=== PATIENT | female | born 1975 | race Caucasian/White ===

== ENCOUNTER 2016-12-28 17:34 | Emergency (ER) | payer BC ==
[2016-12-28] MEDS ORDERED: KETOROLAC TROMETHAMINE INJ/PF 30 MG/1 ML SDV IV ONE (18:11)
--- NOTE | 2016-12-28 18:12 | ER Document Report ---
ED Medical Screen (RME) - General Stated Complaint: LEFT FLANK PAIN Time Seen by Provider: 12/28/16 18:11 Mode of Arrival: Ambulatory Information source: Patient Notes: Patient presents complaining of left flank pain for the past 3 days. Patient states pain occasionally will increase in intensity and making her nauseous and break out in a sweat. Patient does complain of some urinary frequency. Patient was sent here for evaluation of possible kidney stone versus pyelonephritis. TRAVEL OUTSIDE OF THE [place] IN LAST 30 DAYS: No - Related Data Allergies/Adverse Reactions: ciprofloxacin [From Cipro] Allergy (Verified 09/20/15 18:35) Hives ciprofloxacin HCl [From Cipro] Allergy (Verified 09/20/15 18:35) Hives Penicillins Allergy (Verified 09/20/15 18:35) Hives prednisone [Prednisone] Allergy (Verified 09/20/15 18:35) sulfamethoxazole [From Bactrim] Allergy (Verified 09/20/15 18:35) Hives trimethoprim [From Bactrim] Allergy (Verified 09/20/15 18:35) Hives Past Medical History - Past Medical History Cardiac Medical History: Reports: Hx Coronary Artery Disease, Hx Hypercholesterolemia, Hx Hypertension - resolved Endocrine Medical History: Reports: Hx Graves' Disease GI Medical History: Reports: Hx Gastroesophageal Reflux Disease, Hx Ulcer - Gastric Musculoskeltal Medical History: Denies Hx Arthritis Past Surgical History: Reports: Hx Abdominal Surgery - lap band 2010, Hx Section - 2007 - Immunizations Hx Diphtheria, Pertussis, Tetanus Vaccination: Yes Physical Exam - Back Back: CVA tenderness - left
[2016-12-28 18:14] VITALS: BP 153/96
[2016-12-28 18:47] LABS: ABSOLUTE EOSINOPHILS # (AUTO) 0.1 10^3/uL (0.0-0.6); ABSOLUTE LYMPHOCYTES (AUTO) 3.6 10^3/uL (0.5-4.7); ABSOLUTE MONOCYTES (AUTO) 0.5 10^3/uL (0.1-1.4); ABSOLUTE NEUT (AUTO) 5.5 10^3/uL (1.7-8.2); BASOPHILS % (AUTO) 0.5 % (0-2); EOSINOPHILS % (AUTO) 1.1 % (0-6); HEMATOCRIT 42.2 % (36.0-47.0); HEMOGLOBIN 14.1 g/dL (12.0-15.5); HGB HCT DIFFERENCE 0.1; LYMPHOCYTES % (AUTO) 36.9 % (13-45); MEAN CORPUSCULAR HEMOGLOBIN 29.6 pg (27.0-33.4); MEAN CORPUSCULAR HGB CONC 33.5 g/dL (32.0-36.0); MEAN CORPUSCULAR VOLUME 89 fl (80-97); MONOCYTES % (AUTO) 5.3 % (3-13); RED BLOOD COUNT 4.76 10^6/uL (3.72-5.28); RED CELL DISTRIBUTION WIDTH 13.7 % (11.5-14.0); SEGMENTED NEUTROPHILS % (AUTO) 56.2 % (42-78); WHITE BLOOD COUNT 9.8 10^3/uL (4.0-10.5)
[2016-12-28 18:59] LABS: ALANINE AMINOTRANSFERASE 28 U/L (9-52); ALBUMIN 4.3 g/dL (3.5-5.0); ALKALINE PHOSPHATASE 93 U/L (38-126); ANION GAP 9 (5-19); ASPARTATE AMINO TRANSFERASE 18 U/L (14-36); BILIRUBIN,DIRECT 0.3 mg/dL (0.0-0.4); BILIRUBIN,TOTAL 0.4 mg/dL (0.2-1.3); BLOOD UREA NITROGEN 14 mg/dL (7-20); CALCIUM 9.7 mg/dL (8.4-10.2); CARBON DIOXIDE 27 mmol/L (22-30); CHLORIDE 103 mmol/L (98-107); CREATININE RESULT 0.89 mg/dL (0.52-1.25); GLUCOSE 92 mg/dL (75-110); POTASSIUM 4.2 mmol/L (3.6-5.0); SODIUM 138.9 mmol/L (137-145); TOTAL PROTEIN 7.3 g/dL (6.3-8.2)
[2016-12-28 19:19] LABS: APPEARANCE,URINE CLEAR; BILIRUBIN,URINE NEGATIVE (NEGATIVE); GLUCOSE, URINE NEGATIVE (NEGATIVE); KETONES,URINE NEGATIVE (NEGATIVE); LEUKOCYTE ESTERASE,URINE NEGATIVE (NEGATIVE); NITRITE,URINE NEGATIVE (NEGATIVE); PROTEIN,URINE NEGATIVE (NEGATIVE); URINE SPECIFIC GRAVITY 1.014; UROBILINOGEN,URINE NEGATIVE mg/dL (<2.0)
[2016-12-28] MEDS ORDERED: TAMSULOSIN HCL 0.4 MG CAP.SR.24H PO ONE (20:05)
[2016-12-28] MEDS ORDERED: MORPHINE SULFATE IR 15 MG TABLET PO ONE (20:05)
[2016-12-28] MEDS ORDERED: ACETAMINOPHEN 325 MG TABLET PO ONE (20:05)
[2016-12-28] MEDS ORDERED: LIDOCAINE 5% (700 MG) TRANSDERMAL ADH..PATCH TP ONE (20:05)
--- NOTE | 2016-12-28 20:06 | ER Document Report ---
ED General - General Chief Complaint: Flank Pain Stated Complaint: LEFT FLANK PAIN Time Seen by Provider: 12/28/16 18:11 Mode of Arrival: Ambulatory Notes: Patient is a 41-year-old female who presents with 48 hours of a constant, stabbing pain to the left flank that intermittently worsens. Nothing seems to trigger the worsening of the pain. Nothing improves the pain. She has tried ibuprofen with no relief. Denies any prior history of kidney stones although notes a strong family history of such. She has had hematuria and went to an urgent care where they did note hematuria in her urine and referred to the emergency department for further evaluation. She has been nauseated but has not had any vomiting. No chest pain or shortness of breath. No pleuritic pain. No history of estrogen use. TRAVEL OUTSIDE OF THE [place] IN LAST 30 DAYS: No - Related Data Allergies/Adverse Reactions: ciprofloxacin [From Cipro] Allergy (Verified 09/20/15 18:35) Hives ciprofloxacin HCl [From Cipro] Allergy (Verified 09/20/15 18:35) Hives Penicillins Allergy (Verified 09/20/15 18:35) Hives prednisone [Prednisone] Allergy (Verified 09/20/15 18:35) sulfamethoxazole [From Bactrim] Allergy (Verified 09/20/15 18:35) Hives trimethoprim [From Bactrim] Allergy (Verified 09/20/15 18:35) Hives Past Medical History - General Information source: Patient - Social History Smoking Status: Never Smoker Chew tobacco use (# tins/day): No Frequency of alcohol use: None Drug Abuse: None Lives with: Spouse/Significant other Family History: Reviewed & Not Pertinent Patient has suicidal ideation: No Patient has homicidal ideation: No - Past Medical History Cardiac Medical History: Reports: Hx Coronary Artery Disease, Hx Hypercholesterolemia, Hx Hypertension - resolved Endocrine Medical History: Reports: Hx Graves' Disease Renal/ Medical History: Denies: Hx Peritoneal Dialysis GI Medical History: Reports: Hx Gastroesophageal Reflux Disease, Hx Ulcer - Gastric Musculoskeltal Medical History: Denies Hx Arthritis Past Surgical History: Reports: Hx Abdominal Surgery - lap band 2010, Hx Section - 2007 - Immunizations Hx Diphtheria, Pertussis, Tetanus Vaccination: Yes Review of Systems - Review of Systems Notes: Constitutional: Negative for fever. HENT: Negative for sore throat. Eyes: Negative for visual changes. Cardiovascular: Negative for chest pain. Respiratory: Negative for shortness of breath. Gastrointestinal: Positive for left flank pain and nausea Genitourinary: N positive for hematuria Musculoskeletal: Negative for back pain. Skin: Negative for rash. Neurological: Negative for headaches, weakness or numbness. 10 point ROS negative except as marked above and in HPI. Physical Exam - Vital signs Vitals: Temp Pulse Resp BP Pulse Ox 98.4 F 79 20 153/96 H 97 12/28/16 18:12 12/28/16 18:12 12/28/16 18:12 12/28/16 18:12 12/28/16 18:12 Interpretation: Hypertensive Notes: PHYSICAL EXAMINATION: GENERAL: Well-appearing, well-nourished and in no acute distress. HEAD: Atraumatic, normocephalic. EYES: Pupils equal round and reactive to light, extraocular movements intact, sclera anicteric, conjunctiva are normal. ENT: nares patent, oropharynx clear without exudates. Moist mucous membranes. NECK: Normal range of motion, supple without lymphadenopathy LUNGS: Breath sounds clear to auscultation bilaterally and equal. No wheezes rales or rhonchi. HEART: Regular rate and rhythm without murmurs ABDOMEN: Soft, nontender, normoactive bowel sounds. Mild left CVA tenderness. No guarding, no rebound. No masses appreciated. EXTREMITIES: Normal range of motion, no pitting or edema. No cyanosis. NEUROLOGICAL: No focal neurological deficits. Moves all extremities spontaneously and on command. PSYCH: Normal mood, normal affect. SKIN: Warm, Dry, normal turgor, no rashes or lesions noted. Course - Re-evaluation Re-evalutation: 12/28/16 20:03 Presents with findings consistent with possible acute nephrolithiasis. Urinalysis at the urgent care did show hematuria but was clean here. Laboratory otherwise unremarkable. Renal ultrasound of the bedside does show mild hydronephrosis on the left, absent on the right. Pain was able to be controlled here in the emergency department. Patient is tolerating oral intake. Clinical history is not consistent with an acute abdominal aneurysm or dissection, MT, or pulmonary embolus. Urinalysis does not show findings consistent with an infected stone. I have had a risks and benefits conversation with the patient regarding CT imaging of the abdomen and pelvis at this time. We discussed, based on today's exam and labs there is a possibility that they could have a diagnosis that could be better clarified by CT and that this could possibly waste/materials exchange specialist. We discussed the risks of radiation to the abdomen and pelvis. We discussed the alternative of close follow-up with their primary care physician as well as reasons to return to the emergency department. After this conversation, the patient has elected to avoid CT imaging of the abdomen and pelvis at this time. They have capacity. They have verbalized the importance of close follow-up as well as reasons to return to the emergency department including worsening pain, fever, persistent vomiting, or any other symptoms that are worrisome to them. Will empirically treat as a kidney stone at this time. - Vital Signs Vital signs: Temp Pulse Resp BP Pulse Ox 98.4 F 79 20 153/96 H 97 12/28/16 18:12 12/28/16 18:12 12/28/16 18:14 12/28/16 18:12 12/28/16 18:12 - Laboratory Result Diagrams: 12/28/16 18:25 12/28/16 18:25 Laboratory results interpreted by me: 12/28/16 19:00 Urine Blood SMALL H Discharge - Discharge Clinical Impression: Flank pain Condition: Good Disposition: HOME, SELF-CARE Additional Instructions: Your symptoms should improve over the course of the next one week. If you continue to have pain for greater than one week or your pain is not controlled with the pain medications that you have been sent home with you need to return to the emergency department. Please also return if you develop fever, persistent vomiting, or any other symptoms that are concerning to you. For your pain: Take ibuprofen 600 mg and acetaminophen 1000 mg every 6 hours together as needed for pain. If this does not control your pain you may take 15 mg of oral morphine every 4 hours as needed. Please be very careful about using the oral morphine and only use this for severe pain. Your also been sent home with a medication called Flomax to help pass the stone. You've been given Zofran to assist with nausea. Please followup closely with your primary care provider. Prescriptions: Morphine Sulfate [Morphine Ir 15 mg Tablet] 15 mg PO Q4HP PRN #12 tablet PRN Reason: Tamsulosin HCl [Flomax 0.4 mg Cap.sr] 0.4 mg PO DAILY #7 cap.sr.24h
== END 2016-12-28 21:36 | disposition home or self-care (01) ==
LOC: ER 17:34
DX: N13.30 Unspecified hydronephrosis (principal); R10.9 Unspecified abdominal pain; R11.0 Nausea; I25.10 Atherosclerotic heart disease of native coronary artery without angina pectoris; I10 Essential (primary) hypertension; Z88.1 Allergy status to other antibiotic agents; Z88.0 Allergy status to penicillin; Z88.8 Allergy status to other drugs, medicaments and biological substances
CPT/HCPCS: 99284; 96374; 36415; 87086; 84703; 85025; 87088; 80053; 81001; J1885

== ENCOUNTER 2018-08-31 18:36 | Emergency (ER) | payer BC ==
--- NOTE | 2018-08-31 18:49 | ER Document Report ---
ED Medical Screen (RME) - General Chief Complaint: Allergic Reaction Stated Complaint: THROAT SWELLING,DIFFICULTY BREATHING Time Seen by Provider: 08/31/18 18:47 Mode of Arrival: Ambulatory Information source: Patient, Relative TRAVEL OUTSIDE OF THE [place] IN LAST 30 DAYS: No - HPI Notes: 08/31/18 18:58 42-year-old female who presents to the ED by private vehicle for evaluation of possible allergic reaction after starting prednisone yesterday for poison mayi exposure yesterday on her fingers. reports she feels short of breath and difficulty talking after taking 2 days of prednisone. states her last dose was of prednisone was approx 7 hours ago. no n/v/d, no cp. no other oral medications besides prednisone. not eating but drinking ok. no rashes. vacc utd. no hx of cardiac issues. allergy to prednisone in 2016, but it was an injection of solumedrol. exam: ENT: Nares patent, oropharynx clear without exudates. Moist mucous membranes. Uvula midline,. NECK: Normal range of motion, supple without lymphadenopathy LUNGS: Breath sounds clear to auscultation bilaterally and equal. No wheezes rales or rhonchi. HEART:tachycardia and rhythm without murmurs ABDOMEN: Soft, nontender, nondistended abdomen. No guarding, no rebound. No masses appreciated. Patient given 50 mg IVP mode of pain and, patient is speaking in full sentences, no retraction, no wheezing heard on auscultation of lungs, airway is patent. Patient became what appeared to be more anxious as conversation went on about her physical assessment. she is slightly tachycardic and blood pressure is elevated she does not have a history of hypertension. Denies taking any other medications besides prednisone, has not had any Benadryl today. Will further evaluate in main ED. I have greeted and performed a rapid initial assessment of this patient. A comprehensive ED assessment and evaluation of the patient, analysis of test results and completion of medical decision making process will be conducted by an additional ED providers. - Related Data Allergies/Adverse Reactions: ciprofloxacin [From Cipro] Allergy (Verified 09/20/15 18:35) Hives ciprofloxacin HCl [From Cipro] Allergy (Verified 09/20/15 18:35) Hives Penicillins Allergy (Verified 09/20/15 18:35) Hives prednisone [Prednisone] Allergy (Verified 09/20/15 18:35) sulfamethoxazole [From Bactrim] Allergy (Verified 09/20/15 18:35) Hives trimethoprim [From Bactrim] Allergy (Verified 09/20/15 18:35) Hives Past Medical History - General Information source: Patient, Relative - Past Medical History Cardiac Medical History: Reports: Hx Coronary Artery Disease, Hx Hypercholesterolemia, Hx Hypertension - resolved Endocrine Medical History: Reports: Hx Graves' Disease Renal/ Medical History: Denies: Hx Peritoneal Dialysis GI Medical History: Reports: Hx Gastroesophageal Reflux Disease, Hx Ulcer - Gastric Musculoskeltal Medical History: Denies Hx Arthritis Past Surgical History: Reports: Hx Abdominal Surgery - lap band 2010, Hx Section - 2007 - Immunizations Hx Diphtheria, Pertussis, Tetanus Vaccination: Yes Review of Systems - Review of Systems Constitutional: No symptoms reported EENT: No symptoms reported Cardiovascular: No symptoms reported Respiratory: See HPI Gastrointestinal: No symptoms reported Genitourinary: No symptoms reported Female Genitourinary: No symptoms reported Musculoskeletal: No symptoms reported Skin: No symptoms reported Hematologic/Lymphatic: No symptoms reported Neurological/Psychological: No symptoms reported Physical Exam - Vital signs Vitals: Temp Pulse Resp BP Pulse Ox 98.8 F 122 H 18 164/99 H 99 08/31/18 18:46 08/31/18 18:46 08/31/18 18:46 08/31/18 18:46 08/31/18 18:46 Course - Vital Signs Vital signs: Temp Pulse Resp BP Pulse Ox 98.8 F 122 H 18 164/99 H 99 08/31/18 18:46 08/31/18 18:46 08/31/18 18:46 08/31/18 18:46 08/31/18 18:46
[2018-08-31] MEDS ORDERED: DIPHENHYDRAMINE HCL 50 MG/ML VIAL IV ONE (19:09)
[2018-08-31] MEDS ORDERED: FAMOTIDINE INJ/PF 20 MG/2 ML SDV IV ONE (19:09)
[2018-08-31] MEDS ORDERED: DILTIAZEM HCL INJ 25 MG/5 ML VIAL ONE (19:31)
[2018-08-31] MEDS ORDERED: ADENOSINE INJ/PF 6 MG/2 ML SDV IV ONE (19:31)
[2018-08-31] MEDS ORDERED: LORAZEPAM INJ 2 MG/1 ML VIAL IV ONE (19:42)
[2018-08-31] MEDS ORDERED: NORMAL SALINE 1000 ML 1,000 ML IV ONE (19:47)
--- NOTE | 2018-08-31 19:47 | ER Document Report ---
ED General - General Chief Complaint: Allergic Reaction Stated Complaint: THROAT SWELLING,DIFFICULTY BREATHING Time Seen by Provider: 08/31/18 18:47 Mode of Arrival: Ambulatory TRAVEL OUTSIDE OF THE [place] IN LAST 30 DAYS: No - HPI Notes: Patient is a 42-year-old female that presents to the emergency department for chief complaint of allergic reaction. Patient is concerned she is having allergic reaction to her prednisone. She was started on prednisone yesterday for poison mayi. She states that the poison mayi has significantly improved since yesterday. She states it is mostly on the right side of her face and hands. Patient states she has had a allergy to Solu- Medrol in the past but has never had any issues with p.o. prednisone. She described a throat itching that began just prior to coming to the emergency room. She denied any shortness of breath, wheezing or lightheadedness. Currently she is complaining of palpitations and chills. She states that her throat feels back to normal currently. Patient does report severe allergic reactions in the past. Past Medical History: Seasonal allergies Past Surgical History: [] Social History: Denies drugs alcohol and tobacco Family History: Reviewed and noncontributory for presenting illness Allergies: Reviewed, see documented allergy list. REVIEW OF SYSTEMS: CONSTITUTIONAL : No fever No chills No diaphoresis No recent illness EENT: No vision changes No congestion sore throat CARDIOVASCULAR: No chest pain palpitations RESPIRATORY: No shortness of breath No cough No difficulty breathing GASTROINTESTINAL: No abdominal pain No nausea No vomiting No diarrhea GENITOURINARY: No dysuria No hematuria No difficulty urinating MUSCULOSKELETAL: No back pain No leg pain No arm pain SKIN: rashes No lesions LYMPHATIC: No swollen, enlarged glands. NEUROLOGICAL: No lightheadedness No headache No weakness No paresthesias PSYCHIATRIC: No anxiety No depression PHYSICAL EXAMINATION: Vital signs reviewed, nursing noted reviewed. GENERAL: Well-appearing, well-nourished and in no acute distress. HEAD: Atraumatic, normocephalic. EYES: Eyes appear normal, extraocular movements intact, sclera anicteric, conjunctiva are normal. ENT: Uvula midline with no edema, nares patent, oropharynx clear without exudates. Moist mucous membranes. NECK: Normal range of motion, supple without lymphadenopathy LUNGS: Breath sounds clear to auscultation bilaterally and equal. No wheezes rales or rhonchi. HEART: Tachycardic rate and regular rhythm without murmurs ABDOMEN: Soft, nontender, normoactive bowel sounds. No rebound, guarding, or rigidity. No masses appreciated. EXTREMITIES: Nontender, good range of motion, no pitting or edema. NEUROLOGICAL: No focal neurological deficits. Moves all extremities spontaneously Motor and sensory grossly intact on exam. PSYCH: Anxious, rapid pressured speech, tremulous SKIN: Warm, Dry, normal turgor, vesicular and erythematous rash to right cheek and inner webspaces of bilateral hands - Related Data Allergies/Adverse Reactions: ciprofloxacin [From Cipro] Allergy (Verified 09/20/15 18:35) Hives ciprofloxacin HCl [From Cipro] Allergy (Verified 09/20/15 18:35) Hives Penicillins Allergy (Verified 09/20/15 18:35) Hives prednisone [Prednisone] Allergy (Verified 09/20/15 18:35) sulfamethoxazole [From Bactrim] Allergy (Verified 09/20/15 18:35) Hives trimethoprim [From Bactrim] Allergy (Verified 09/20/15 18:35) Hives Past Medical History - General Information source: Patient, Relative - Social History Smoking Status: Unknown if Ever Smoked Family History: Reviewed & Not Pertinent Patient has suicidal ideation: No Patient has homicidal ideation: No - Past Medical History Cardiac Medical History: Reports: Hx Coronary Artery Disease, Hx H ypercholesterolemia, Hx Hypertension - resolved Endocrine Medical History: Reports: Hx Graves' Disease Renal/ Medical History: Denies: Hx Peritoneal Dialysis GI Medical History: Reports: Hx Gastroesophageal Reflux Disease, Hx Ulcer - Gastric Musculoskeletal Medical History: Denies Hx Arthritis Past Surgical History: Reports: Hx Abdominal Surgery - lap band 2010, Hx [place] meliton Section - 2008 - Immunizations Hx Diphtheria, Pertussis, Tetanus Vaccination: Yes Physical Exam - Vital signs Vitals: Temp Pulse Resp BP Pulse Ox 98.8 F 122 H 18 164/99 H 99 08/31/18 18:46 08/31/18 18:46 08/31/18 18:46 08/31/18 18:46 08/31/18 18:46 Course - Re-evaluation Re-evalutation: 08/31/18 19:45 Vitals reviewed per nurse's notes reviewed. Patient has a patent oropharynx and no urticarial rash or wheezing to suggest acute allergic reaction. She was given IV Benadryl in triage and has become very anxious and tremulous. Patient's heart rate did increase to 170. When I entered the room her heart rate was 128. Repeat EKG shows sinus tachycardia. Patient's blood pressure has remained stable. She is mentating appropriately. Patient will be given Ativan for her apparent anxiety. She will continue to be monitored in the emergency room. 08/31/18 20:48 Patient had blood work ordered in triage. Blood work was reviewed and is unremarkable. Her heart rate currently is 102. Patients oropharyngeal exam is unchanged. She has no oropharyngeal edema, respiratory wheezing or distress. She is hemodynamically stable. Patient encouraged to stop taking the prednisone. Her poison mayi rash is improving and she will follow with her PCP. Laboratory 08/31/18 08/31/18 08/31/18 19:38 19:38 19:38 WBC 10.2 RBC 4.53 Hgb 14.0 Hct 41.0 MCV 91 MCH 31.0 MCHC 34.2 RDW 13.9 Plt Count 298 Seg Neutrophils % 79.6 H Lymphocytes % 16.9 Monocytes % 3.4 Eosinophils % 0.0 Basophils % 0.1 Absolute Neutrophils 8.1 Absolute Lymphocytes 1.7 Absolute Monocytes 0.4 Absolute Eosinophils 0.0 Absolute Basophils 0.0 Sodium 138.9 Potassium 4.4 Chloride 106 Carbon Dioxide 25 Anion Gap 8 BUN 14 Creatinine 0.86 Est GFR ( Amer) > 60 Est GFR (Non-Af Amer) > 60 Glucose 122 H Calcium 9.7 Total Bilirubin 0.4 Direct Bilirubin 0.2 Neonat Total Bilirubin Not Reportable Neonat Direct Bilirubin Not Reportable Neonat Indirect Bili Not Reportable AST 16 ALT 27 Alkaline Phosphatase 75 C-React Prot High Sens Total Protein 7.2 Albumin 4.3 Serum HCG, Qual NEGATIVE 08/31/18 19:38 WBC RBC Hgb Hct MCV MCH MCHC RDW Plt Count Seg Neutrophils % Lymphocytes % Monocytes % Eosinophils % Basophils % Absolute Neutrophils Absolute Lymphocytes Absolute Monocytes Absolute Eosinophils Absolute Basophils Sodium Potassium Chloride Carbon Dioxide Anion Gap BUN Creatinine Est GFR ( Amer) Est GFR (Non-Af Amer) Glucose Calcium Total Bilirubin Direct Bilirubin Neonat Total Bilirubin Neonat Direct Bilirubin Neonat Indirect Bili AST ALT Alkaline Phosphatase C-React Prot High Sens 0.1180 Total Protein Albumin Serum HCG, Qual Chest X-Ray 08/31/18 19:08 IMPRESSION: No acute disease. copyright 2010 [employer]- All Rights Reserved - Vital Signs Vital signs: Temp Pulse Resp BP Pulse Ox 98.8 F 122 H 18 164/99 H 99 08/31/18 18:46 08/31/18 18:46 08/31/18 18:46 08/31/18 18:46 08/31/18 18:46 - Laboratory Result Diagrams: 08/31/18 19:38 08/31/18 19:38 Laboratory results interpreted by me: 08/31/18 08/31/18 19:38 19:38 Seg Neutrophils % 79.6 H Glucose 122 H - EKG Interpretation by Me Additional EKG results interpreted by me: 08/31/18 19:46 Interpreted by myself 1914: Sinus tachycardia, rate 106, normal axis, no ectopy, no STEMI 1933: Sinus tachycardia, rate 121, normal axis, no dysrhythmia Discharge - Discharge Clinical Impression: Tachycardia Allergic reaction Qualifiers: Encounter type: initial encounter Qualified Code(s): T78.40XA - Allergy, unspecified, initial encounter Condition: Stable Disposition: HOME, SELF-CARE Instructions: Acute Allergic Reaction ([facility]) Additional Instructions: Please return to the emergency department if you have any worsening, or concern of your symptoms. Please return to the emergency department if you develop chest pain, difficulty breathing, severe abdominal pain, or ongoing vomiting. Please follow-up with your primary care physician in 2-3 days and any other recommended physicians. If prescribed, take all medications as directed. If you have any questions or concerns do not hesitate to return the emergency department for evaluation. Stop taking the prednisone and the triamcinolone cream Contact an distribution field engineer for further allergy testing since you have had multiple reactions to different medications Referrals: LING MEHTA PA-C [Primary Care Provider] - Follow up in 3-5 days
[2018-08-31 19:49] LABS: ABSOLUTE LYMPHOCYTES (AUTO) 1.7 10^3/uL (0.5-4.7); ABSOLUTE MONOCYTES (AUTO) 0.4 10^3/uL (0.1-1.4); ABSOLUTE NEUT (AUTO) 8.1 10^3/uL (1.7-8.2); BASOPHILS % (AUTO) 0.1 % (0-2); LYMPHOCYTES % (AUTO) 16.9 % (13-45); MEAN CORPUSCULAR HGB CONC 34.2 g/dL (32.0-36.0); MEAN CORPUSCULAR VOLUME 91 fl (80-97); MONOCYTES % (AUTO) 3.4 % (3-13); PLATELET COUNT 298 10^3/uL (150-450); RED BLOOD COUNT 4.53 10^6/uL (3.72-5.28); RED CELL DISTRIBUTION WIDTH 13.9 % (11.5-14.0); SEGMENTED NEUTROPHILS % (AUTO) 79.6 % (42-78); TOTAL CELLS COUNTED % (AUTO) 100 %; WHITE BLOOD COUNT 10.2 10^3/uL (4.0-10.5)
[2018-08-31 20:07] LABS: ALANINE AMINOTRANSFERASE 27 U/L (9-52); ALBUMIN 4.3 g/dL (3.5-5.0); ALKALINE PHOSPHATASE 75 U/L (38-126); ANION GAP 8 (5-19); ASPARTATE AMINO TRANSFERASE 16 U/L (14-36); BILIRUBIN,DIRECT 0.2 mg/dL (0.0-0.4); BILIRUBIN,TOTAL 0.4 mg/dL (0.2-1.3); BLOOD UREA NITROGEN 14 mg/dL (7-20); CALCIUM 9.7 mg/dL (8.4-10.2); CARBON DIOXIDE 25 mmol/L (22-30); CHLORIDE 106 mmol/L (98-107); GLUCOSE 122 mg/dL (75-110); POTASSIUM 4.4 mmol/L (3.6-5.0); SODIUM 138.9 mmol/L (137-145); TOTAL PROTEIN 7.2 g/dL (6.3-8.2)
--- NOTE | 2018-08-31 20:36 | RADIOLOGY REPORT (SQ) ---
EXAM DESCRIPTION: XR CHEST 2 VIEWS COMPLETED DATE/TME: 08/31/2018 19:08 CLINICAL HISTORY: 42 years, Female, sob, questionable allergic rxn COMPARISON: Prior study from 12/25/2013 NUMBER OF VIEWS: Two TECHNIQUE: Frontal and lateral radiograph of the chest were obtained LIMITATIONS: None FINDINGS: Cardiac and mediastinal contours are normal in appearance. Lungs are clear. No pleural effusion or pneumothorax. IMPRESSION: No acute disease. copyright 2010 [employer]- All Rights Reserved
[2018-08-31 20:48] VITALS: BP 147/95
--- NOTE | 2018-09-01 07:45 | EKG REPORT ---
SEVERITY:- OTHERWISE NORMAL ECG - FAST SINUS ARRHYTHMIA, RATE [id number] : Confirmed by: Rei Pimentel MD 01-Sep-2018 07:45:01
--- NOTE | 2018-09-01 07:45 | EKG REPORT ---
SEVERITY:- OTHERWISE NORMAL ECG - SINUS TACHYCARDIA : Confirmed by: Rei Pimentel MD 01-Sep-2018 07:45:11
== END 2018-08-31 21:00 | disposition home or self-care (01) ==
LOC: ER 18:36
DX: T78.40XA Allergy, unspecified, initial encounter (principal); R00.0 Tachycardia, unspecified; R13.10 Dysphagia, unspecified; Z79.899 Other long term (current) drug therapy; I25.10 Atherosclerotic heart disease of native coronary artery without angina pectoris; I10 Essential (primary) hypertension
CPT/HCPCS: 93005 ×2; 99284; 96361; 96374; 96375; 36415; 84703; 85025; 80053; 86141; 71046; 93010; J1200; J2060; J7030; S0028

== ENCOUNTER 2019-07-28 21:34 | Emergency (ER) | payer BC ==
--- NOTE | 2019-07-28 22:11 | ER Document Report ---
ED Medical Screen (RME) - General Chief Complaint: Vag Bleeding, +preg <12wks Stated Complaint: POSSIBLE MISCARRIAGE Time Seen by Provider: 07/28/19 22:10 Primary Care Provider: LING MEHTA PA-C [Primary Care Provider] - Follow up as needed Notes: HPI: 43-year-old female who is a G 21 with a history of prior ectopic presenting to the emergency department complaining of vaginal bleeding this morning, heavy bleeding, has tapered off some currently but still having left pelvic pain. Has had nausea with low back pain over the last 4 days. Last menstrual cycle was approximately a month ago. I have greeted and performed a rapid initial assessment of this patient. A comprehensive ED assessment and evaluation of the patient, analysis of test results and completion of the medical decision making process will be conducted by additional ED providers PHYSICAL EXAMINATION: GENERAL: Well-appearing, well-nourished and in no acute distress. HEAD: Atraumatic, normocephalic. EYES: sclera anicteric, conjunctiva are normal. ENT: Moist mucous membranes. NECK: Normal range of motion LUNGS: Normal work of breathing HEART: 2+ radial pulses bilaterally ABD: limited by positioning for exam in triage. Mild tenderness through the left pelvis on palpation EXTREMITIES: no pitting or edema. No cyanosis. NEUROLOGICAL: No focal neurological deficits. Moves all extremities spontaneously and on command. PSYCH: Normal mood, normal affect. SKIN: Warm, Dry, normal turgor, no rashes or lesions noted. TRAVEL OUTSIDE OF THE [place] IN LAST 30 DAYS: No - Related Data Allergies/Adverse Reactions: ciprofloxacin [From Cipro] Allergy (Verified 09/20/15 18:35) Hives ciprofloxacin HCl [From Cipro] Allergy (Verified 09/20/15 18:35) Hives Penicillins Allergy (Verified 09/20/15 18:35) Hives prednisone [Prednisone] Allergy (Verified 09/20/15 18:35) sulfamethoxazole [From Bactrim] Allergy (Verified 09/20/15 18:35) Hives trimethoprim [From Bactrim] Allergy (Verified 09/20/15 18:35) Hives Past Medical History - Past Medical History Cardiac Medical History: Reports: Hx Coronary Artery Disease, Hx Hypercholesterolemia, Hx Hypertension - resolved Endocrine Medical History: Reports: Hx Graves' Disease Renal/ Medical History: Denies: Hx Peritoneal Dialysis GI Medical History: Reports: Hx Gastroesophageal Reflux Disease, Hx Ulcer - Gastric Musculoskeltal Medical History: Denies Hx Arthritis Past Surgical History: Reports: Hx Abdominal Surgery - lap band 2010, Hx Section - 2007 - Immunizations Hx Diphtheria, Pertussis, Tetanus Vaccination: Yes Physical Exam - Vital signs Vitals: Temp Pulse Resp BP Pulse Ox 97.6 F 107 H 18 144/97 H 100 07/28/19 21:41 07/28/19 21:41 07/28/19 21:41 07/28/19 21:41 07/28/19 21:41 Course - Vital Signs Vital signs: Temp Pulse Resp BP Pulse Ox 97.6 F 107 H 18 144/97 H 100 07/28/19 21:41 07/28/19 21:41 07/28/19 21:41 07/28/19 21:41 07/28/19 21:41 Doctor's Discharge - Discharge Referrals: LING MEHTA PA-C [Primary Care Provider] - Follow up as needed
[2019-07-28 22:45] LABS: ABSOLUTE EOSINOPHILS # (AUTO) 0.1 10^3/uL (0.0-0.6); ABSOLUTE LYMPHOCYTES (AUTO) 2.9 10^3/uL (0.5-4.7); ABSOLUTE MONOCYTES (AUTO) 0.7 10^3/uL (0.1-1.4); ABSOLUTE NEUT (AUTO) 9.6 10^3/uL (1.7-8.2); BASOPHILS % (AUTO) 0.3 % (0-2); EOSINOPHILS % (AUTO) 0.4 % (0-6); HEMATOCRIT 42.3 % (36.0-47.0); HEMOGLOBIN 14.3 g/dL (12.0-15.5); LYMPHOCYTES % (AUTO) 21.9 % (13-45); MEAN CORPUSCULAR HEMOGLOBIN 30.8 pg (27.0-33.4); MEAN CORPUSCULAR HGB CONC 33.8 g/dL (32.0-36.0); MEAN CORPUSCULAR VOLUME 91 fl (80-97); MONOCYTES % (AUTO) 5.5 % (3-13); PLATELET COUNT 273 10^3/uL (150-450); RED BLOOD COUNT 4.63 10^6/uL (3.72-5.28); RED CELL DISTRIBUTION WIDTH 13.6 % (11.5-14.0); SEGMENTED NEUTROPHILS % (AUTO) 71.9 % (42-78); TOTAL CELLS COUNTED % (AUTO) 100 %; WHITE BLOOD COUNT 13.3 10^3/uL (4.0-10.5)
[2019-07-28 22:49] LABS: APPEARANCE,URINE CLEAR; BILIRUBIN,URINE NEGATIVE (NEGATIVE); COLOR,URINE COLORLESS; GLUCOSE, URINE NEGATIVE (NEGATIVE); KETONES,URINE NEGATIVE (NEGATIVE); LEUKOCYTE ESTERASE,URINE NEGATIVE (NEGATIVE); NITRITE,URINE NEGATIVE (NEGATIVE); PROTEIN,URINE NEGATIVE (NEGATIVE); URINE SPECIFIC GRAVITY 1.003; UROBILINOGEN,URINE NEGATIVE mg/dL (<2.0)
--- NOTE | 2019-07-28 23:05 | RADIOLOGY REPORT (SQ) ---
Ultrasound of the pelvis: 07/28/2019 10:03 PM CDT HISTORY: 43-year-old patient with , vaginal bleeding. TECHNIQUE: Multiple grayscale and color Doppler images of the pelvis were obtained transvaginally. COMPARISON: None available FINDINGS: The uterus measures 8.6 x 5.1 x 4.0 cm. The endometrium measures up to seven mm in thickness. No intrauterine gestational sac is seen. No myometrial mass is seen. No free intraperitoneal fluid is seen within the posterior cul-de-sac. The right ovary measures 2.3 x 1.9 x 1.5 cm. The left ovary measures 2.4 x 1.5 x 1.3 cm. Some venous waveforms were obtained from both ovaries. IMPRESSION: No intrauterine gestational sac is seen. Correlation with quantitative beta hCG levels is recommended. Obstetric follow up is also recommended.
[2019-07-29] MEDS ORDERED: IBUPROFEN 800 MG TABLET PO ONE (00:49)
--- NOTE | 2019-07-29 00:56 | ER Document Report ---
HPI - HPI Patient complains to provider of: vaginal bleeding Time Seen by Provider: 07/29/19 00:25 Onset: Yesterday Onset/Duration: Persistent Quality of pain: Achy Pain Level: 3 Context: Patient presents reporting vaginal bleeding that started yesterday. Patient states she has had heavy bleeding with clots. Patient states that she took a home test that she was 3 days late on her menstrual cycle and the test was positive. Patient is concerned that she is having a miscarriage and states she has had a history of frequent miscarriages over the years. Patient denies any urinary symptoms. Associated Symptoms: Nausea. denies: Fever, Vomiting Exacerbated by: Denies Relieved by: Denies Similar symptoms previously: No Recently seen / treated by doctor: No - ROS ROS below otherwise negative: Yes Systems Reviewed and Negative: Yes All other systems reviewed and negative - CONSTITUTIONAL Constitutional: DENIES: Fever, Chills - NEURO Neurology: DENIES: Weakness, Dizzinesss / Vertigo - GASTROINTESTINAL Gastrointestinal: REPORTS: Abdominal Pain, Nausea. DENIES: Patient vomiting - URINARY Urinary: DENIES: Dysuria - REPRODUCTIVE LMP: 6 wks Reproductive: REPORTS: : - MUSCULOSKELETAL Musculoskeletal: REPORTS: Back Pain - DERM Skin Color: Normal Skin Problems: None Past Medical History - General Information source: Patient - Social History Smoking Status: Never Smoker Frequency of alcohol use: None Drug Abuse: None Occupation: teacher Lives with: Spouse/Significant other Family History: Reviewed & Not Pertinent Patient has suicidal ideation: No Patient has homicidal ideation: No - Past Medical History Cardiac Medical History: Reports: Hx Coronary Artery Disease, Hx Hypercholesterolemia, Hx Hypertension - resolved Endocrine Medical History: Reports: Hx Graves' Disease Renal/ Medical History: Denies: Hx Peritoneal Dialysis GI Medical History: Reports: Hx Gastroesophageal Reflux Disease, Hx Ulcer - Gastric Musculoskeletal Medical History: Denies Hx Arthritis Past Surgical History: Reports: Hx Abdominal Surgery - lap band 2010, Hx Section - 2007 - Immunizations Hx Diphtheria, Pertussis, Tetanus Vaccination: Yes Vertical Provider Document - CONSTITUTIONAL Agree With Documented VS: Yes Exam Limitations: No Limitations General Appearance: WD/WN, No Apparent Distress - INFECTION CONTROL TRAVEL OUTSIDE OF THE [place] IN LAST 30 DAYS: No - HEENT HEENT: Atraumatic, Normocephalic - NECK Neck: Normal Inspection, Supple. negative: Lymphadenopathy-Left, Lymphadenopathy-Right - RESPIRATORY Respiratory: Breath Sounds Normal, No Respiratory Distress - CARDIOVASCULAR Cardiovascular: Regular Rate, Regular Rhythm, No Murmur - GI/ABDOMEN Gastrointestinal: Abdomen Soft, Abdomen Tender - Left lower pelvic tenderness - BACK Back: Abnormal Inspection - Left lower paraspinal tenderness. negative: CVA Tenderness-Right, CVA Tenderness-Left - MUSCULOSKELETAL/EXTREMETIES Musculoskeletal/Extremeties: RICHARD KENNEY - NEURO Level of Consciousness: Awake, Alert, Appropriate Motor/Sensory: No Motor Deficit - DERM Integumentary: Warm, Dry, No Rash Course - Re-evaluation Re-evalutation: 07/29/19 00:52 Discussed with patient results of her diagnostic test. Patient with negative test and no worrisome findings noted on ultrasound. Patient encouraged to follow-up with office inspector for further evaluation of irregular heavy vaginal bleeding at this time. Patient denies any concerns about STI. Patient with stable H&H and vital signs. Discussed worsening symptoms that patient should return immediately for. Patient verbalized understanding and is agreeable with plan of care. - Vital Signs Vital signs: Temp Pulse Resp BP Pulse Ox 97.6 F 107 H 18 144/97 H 100 07/28/19 21:41 07/28/19 21:41 07/28/19 21:41 07/28/19 21:41 07/28/19 21:41 - Laboratory Result Diagrams: 07/28/19 22:31 Laboratory results interpreted by me: 07/28/19 07/28/19 22:31 22:31 WBC 13.3 H Absolute Neuts (auto) 9.6 H Urine Blood SMALL H 07/29/19 00:53 Labs- Entire Visit 07/28/19 07/28/19 07/28/19 22:31 22:31 22:31 WBC 13.3 H RBC 4.63 Hgb 14.3 Hct 42.3 MCV 91 MCH 30.8 MCHC 33.8 RDW 13.6 Plt Count 273 Lymph % (Auto) 21.9 [place] % (Auto) 5.5 Eos % (Auto) 0.4 Baso % (Auto) 0.3 Absolute Neuts (auto) 9.6 H Absolute Lymphs (auto) 2.9 Absolute Monos (auto) 0.7 Absolute Eos (auto) 0.1 Absolute Basos (auto) 0.0 Seg Neutrophils % 71.9 Beta HCG, Quant < 2.39 Total Beta HCG NEGATIVE Urine Color Urine Appearance Urine pH Ur Specific [place] Urine Protein Urine Glucose (UA) Urine Ketones Urine Blood Urine Nitrite Urine Bilirubin Urine Urobilinogen Ur Leukocyte Esterase Urine WBC (Auto) Urine RBC (Auto) Squamous Epi Cells Auto Urine Mucus (Auto) Urine Ascorbic Acid Blood Type O POSITIVE Rhogam Indicated RHOGAM NOT INDICATED 07/28/19 22:31 WBC RBC Hgb Hct MCV MCH MCHC RDW Plt Count Lymph % (Auto) [place] % (Auto) Eos % (Auto) Baso % (Auto) Absolute Neuts (auto) Absolute Lymphs (auto) Absolute Monos (auto) Absolute Eos (auto) Absolute Basos (auto) Seg Neutrophils % Beta HCG, Quant Total Beta HCG Urine Color COLORLESS Urine Appearance CLEAR Urine pH 7.0 Ur Specific [place] 1.003 Urine Protein NEGATIVE Urine Glucose (UA) NEGATIVE Urine Ketones NEGATIVE Urine Blood SMALL H Urine Nitrite NEGATIVE Urine Bilirubin NEGATIVE Urine Urobilinogen NEGATIVE Ur Leukocyte Esterase NEGATIVE Urine WBC (Auto) 1 Urine RBC (Auto) 0 Squamous Epi Cells Auto <1 Urine Mucus (Auto) RARE Urine Ascorbic Acid NEGATIVE Blood Type Rhogam Indicated - Diagnostic Test Radiology reviewed: Reports reviewed Discharge - Discharge Clinical Impression: Vagina bleeding Condition: Stable Disposition: HOME, SELF-CARE Instructions: Antinausea Medication ([facility]), Vaginal Bleeding ([facility]) Additional Instructions: Return immediately for any new or worsening symptoms Followup with your primary care provider, call tomorrow to make a followup appointment Follow-up with a office inspector for further evaluation of abnormal vaginal bleeding Prescriptions: Naproxen [Naprosyn 250 Nmg Tablet] 1 tab PO BID #14 tablet Ondansetron [Zofran Odt 4 mg Tablet] 1 tab PO Q6H #15 tab.rapdis Forms: Return to Work Referrals: LING MEHTA PA-C [Primary Care Provider] - Follow up as needed [facility] [Provider Group] - Follow up as needed
[2019-07-29 02:06] VITALS: BP 130/93
== END 2019-07-29 01:12 | disposition home or self-care (01) ==
LOC: ER 21:34
DX: N93.9 Abnormal uterine and vaginal bleeding, unspecified (principal); R11.0 Nausea; R10.9 Unspecified abdominal pain; M54.9 Dorsalgia, unspecified; I25.10 Atherosclerotic heart disease of native coronary artery without angina pectoris; Z87.59 Personal history of other complications of pregnancy, childbirth and the puerperium; Z98.84 Bariatric surgery status; Z87.19 Personal history of other diseases of the digestive system
CPT/HCPCS: 36415; 76817; 81001; 84702; 85025; 86900; 86901; 93976; 99284